=== PATIENT | female | born 1980 | race Caucasian/White ===

== ENCOUNTER 2016-10-07 05:01 | Emergency (ER) | payer BC ==
--- NOTE | ~2016-10-07 | CR170 ---
[facility] A Service of [facility] & [facility] RADIOLOGY TEXT RESULTS PATIENT: MARCYSEPTEMBER LOCATION: [facility] : 76 UNIT #: [id number] AGE: [address]: Wilfred Parkinson MD SEX: F ORDER DR: [id number] [facility] [address] [place], [place] [address] [id number] P MR#: [id number] Acc #: [id number] NAME: MARCY SEPTEMBER : 1980 SEX: F STUDY DATE/TIME: 10/07/2016 3:59 UNIT: [facility] ROOM: STUDY DESCRIPTION: CR Knee 2 Views Rt Attending Physician: Wilfred Parkinson M.D. Ordering Physician: Wilfred Parkinson M.D. Primary Care Physician: Jimy Huber M.D. MEDICAL IMAGING REPORT This report is preliminary unless electronic signature is present EXAM Right knee 10/07/2016 HISTORY 36-year-old female in the ED with knee pain after injury. Fell today. TECHNIQUE AP and cross-table lateral radiographs of the right knee. FINDINGS Examination shows a moderately distracted transverse fracture across the mid portion of the patella. The remainder of the exam is negative. No additional osseous abnormality. IMPRESSION Moderately distracted transverse fracture across the mid portion of the patella. Dictated by... Porter Grajeda M.D. THIS IS AN ELECTRONICALLY VERIFIED REPORT Porter Grajeda M.D. at 10/07/2016 5:58 AM EDUARDOW/minor TD: 10/07/2016 04:33 JOB #: [id number] MEDICAL IMAGING REPORT Page 1 of 1 COPY
[~2016-10-07 05:01] MED LIST: BIRTH CONTROL PILL; ULTRAM PO; VICODIN 5/1 TAB 5/50 PO
== END 2016-10-07 06:58 | disposition home or self-care (01) ==
LOC: CED 05:01
DX: S82.031A Displaced transverse fracture of right patella, initial encounter for closed fracture (principal); F17.200 Nicotine dependence, unspecified, uncomplicated; W01.0XXA Fall on same level from slipping, tripping and stumbling without subsequent striking against object, initial encounter; Y93.89 Activity, other specified; Y92.410 Unspecified street and highway as the place of occurrence of the external cause
CPT/HCPCS: 29345; 29505; 73560; 99283

== ENCOUNTER → 2016-10-10 | Outpatient (CLI) | payer BC ==
[2016-10-10 11:23] LABS: HEMATOCRIT 41.5 % (35.0-45.0); MEAN CELL VOLUME 91.3 FL (83-96); MEAN CORPUSCULAR HEMOGLOBIN 30.7 PG (28-34); MEAN CORPUSCULAR HGB CONC 33.7 g/dL (30-36); MEAN PLATELET VOLUME 8.9 FL (6.5-11.5); RED BLOOD COUNT 4.54 X10e (3.90-5.30); WHITE BLOOD COUNT 6.2 X10e3 (4.0-10.5)
== END | disposition home or self-care (01) ==
LOC: CLAB 10:53
PROVIDERS: Orthopaedic Surgery
DX: Z01.812 Encounter for preprocedural laboratory examination (principal); S82.001A Unspecified fracture of right patella, initial encounter for closed fracture
CPT/HCPCS: 36415; 84703; 85027